=== PATIENT | male | born 1950 | race Caucasian/White ===

== ENCOUNTER → 2016-09-16 | Outpatient (CLI) | payer OTHER ==
--- NOTE | 2016-09-16 13:14 | XR ---
EXAMINATION TYPE: XR elbow complete RT DATE OF EXAM: 09/16/2016 1:09 PM COMPARISON: NONE HISTORY: elbow contusion Three views of the elbow demonstrate no pathologic joint effusion. The osseous structures are intact . There is no acute fracture or dislocation. IMPRESSION: 1. No acute fracture or dislocation. If symptoms persist follow-up study in 7 to 10 days could be ob tained.
== END | disposition home or self-care (01) ==
LOC: RADXRMAIN 12:51
PROVIDERS: ATTEND Emergency Medicine
DX: S50.01XA Contusion of right elbow, initial encounter (principal); Z98.890 Other specified postprocedural states

== ENCOUNTER 2022-07-21 12:34 | Emergency (ER) | payer OTHER, MEDICARE ==
[2022-07-21 13:14] VITALS: BP 153/89; PULSE 82; RESP 20; TEMP 98
--- NOTE | 2022-07-21 14:21 | XR ---
EXAMINATION TYPE: XR Hip RT and AP Pelvis DATE OF EXAM: 07/21/2022 COMPARISON: None HISTORY: Fall, pain TECHNIQUE: 2 view right hip supplemented with AP pelvis FINDINGS: Femoral heads articulate with the acetabulum. Mild diffuse joint space narrowing may be pre sent bilaterally. Sacroiliac joints and symphysis pubis are normal. Normal bowel gas is present withi n the [id number] No acute fracture or dislocation is evident. Cam deformity may be present at the right hip. Follow up exams can be performed 7-10 days from acute trauma for continued pain. IMPRESSION: 1. No acute osseous abnormality right hip
[2022-07-21] MEDS ORDERED: ACET/COD 300 MG/30 MG STARTER PACK 6 TAB BTL PO STA (15:17)
--- NOTE | 2022-07-21 15:17 | ED ---
General Adult HPI - General Chief complaint: Extremity Injury, Lower Stated complaint: Fall, [facility] Time Seen by Provider: 07/21/22 14:44 Source: patient Mode of arrival: ambulatory Limitations: no limitations - History of Present Illness Initial comments: Dictation was produced using [employer] dictation software. please excuse any grammatical, word or spelling errors. Chief Complaint: 72-year-old male in no significant past medical history presents with right-sided hip pain after fall History of Present Illness: Patient 72-year-old male he felt the back of a truck approximately 3 feet. He landed on his right hip. Patient states that after the fall he was expressing significant pain is secondary to industrial health and then was brought to the emergency department. Patient states that it's extremely painful when he walks however he is able to bear weight and ambulate. Patient's pain is worse with standing and internal rotation. The ROS documented in this emergency department record has been reviewed and confirmed by me. Those systems with pertinent positive or negative responses have been documented in the HPI. All other systems are other negative and/or noncontributory. PHYSICAL EXAM: General Impression: Alert and oriented x3, not in acute distress HEENT: Normocephalic atraumatic, extra-ocular movements intact, pupils equal and reactive to light bilaterally, mucous membranes moist. Cardiovascular: Heart regular rate and rhythm Chest: Able to complete full sentences, no retractions, no tachypnea Abdomen: abdomen soft, non-tender, non-distended, no organomegaly Musculoskeletal: Pulses present and equal in all extremities, no peripheral edema Bilateral lower extremities, right hip does not show any ecchymoses. No gross deformities. Pain reproduced with internal rotation at the right hip and bilateral knee adduction Motor: no focal deficits noted Neurological: CN II-XII grossly intact, no focal motor or sensory deficits noted Skin: Intact with no visualized rashes Psych: Normal affect and mood ED course: 72-year-old male presents emergency department for right hip injury. All signs upon arrival are within acceptable limits. X-ray does not show any osseous abnormalities. Patient be discharged. Advised follow-up with primary care doctor. - Related Data Allergies Allergy/AdvReac Type Severity Reaction Status Date / Time methimazole [From Tapazole] Allergy Vomiting Verified 07/21/22 13:14 Review of Systems ROS Statement: Those systems with pertinent positive or pertinent negative responses have been documented in the HPI. ROS Other: All systems not noted in ROS Statement are negative. Past Medical History Past Medical History: No Reported History History of Any Multi-Drug Resistant Organisms: None Reported Additional Past Surgical History / Comment(s): Colon, Ca Past Psychological History: No Psychological Hx Reported Smoking Status: Never smoker Past Alcohol Use History: None Reported Past Drug Use History: None Reported General Exam Limitations: no limitations Course Vital Signs 07/21/22 13:11 Temperature 98 F Pulse Rate 82 Respiratory 20 Rate Blood Pressure 153/89 O2 Sat by Pulse 96 Oximetry Disposition Clinical Impression: Hip strain Disposition: HOME SELF-CARE Condition: Good Instructions (If sedation given, give patient instructions): Hip Pain (ED) Is patient prescribed a controlled substance at d/c from ED?: No Referrals: Andres Vaughn MD [Primary Care Provider] - 1-2 days Time of Disposition: 15:16
== END 2022-07-21 16:14 | disposition home or self-care (01) ==
LOC: EC 12:34
DX: S76.011A Strain of muscle, fascia and tendon of right hip, initial encounter (principal); Z88.8 Allergy status to other drugs, medicaments and biological substances; W18.30XA Fall on same level, unspecified, initial encounter
CPT/HCPCS: 73502; 99283

== ENCOUNTER 2022-07-25 17:20 | Emergency (ER) | payer OTHER, MEDICARE ==
[2022-07-25 17:36] VITALS: RESP 20
[2022-07-25] MEDS ORDERED: HYDROcodone/APAP 5-325MG 1 EACH TAB PO STA (19:52)
[2022-07-25 20:32] LABS: Basophils % (A) 1 %; Eosinophils # (A) 0.2 k/uL (0-0.7); Eosinophils % (A) 3 %; HCT 43.3 % (39.0-53.0); HGB 14.6 gm/dL (13.0-17.5); Lymphocytes # (A) 2.3 k/uL (1.0-4.8); Lymphocytes % (A) 34 %; MCH 29.7 pg (25.0-35.0); MCHC 33.7 g/dL (31.0-37.0); Mean Platelet Volume 8.9; Monocytes # (A) 0.7 k/uL (0-1.0); Monocytes % (A) 10 %; Neutrophils # (A) 3.4 k/uL (1.3-7.7); Neutrophils % (A) 50 %; Platelet Count 199 k/uL (150-450); RBC 4.91 m/uL (4.30-5.90); RDW 12.8 % (11.5-15.5); WBC 6.9 k/uL (3.8-10.6)
[2022-07-25 20:42] LABS: Appearance,Urine Clear (Clear); Bilirubin,Urine Negative (Negative); Blood,Urine Negative (Negative); Color,Urine Yellow; Glucose,Urine (UA) Negative (Negative); Ketones,Urine Negative (Negative); Leukocyte Esterase,Urine Negative (Negative); Nitrite,Urine Negative (Negative); Protein,Urine Negative (Negative); Specific Gravity,Urine 1.017 (1.001-1.035); Urobilinogen,Urine <2.0 mg/dL (<2.0)
[2022-07-25 20:46] LABS: INR 0.9 (<1.2); Partial Thromboplastin Time 28.3 sec (22.0-30.0); Prothrombin Time 9.9 sec (9.0-12.0)
[2022-07-25 20:55] LABS: ALT 38 U/L (4-49); AST 35 U/L (17-59); African American GFR (CKD) >90 (>60 ml/min/1.73 sqM); Albumin 4.5 g/dL (3.5-5.0); Alkaline Phosphatase 67 U/L (38-126); Anion Gap 6 mmol/L; Blood Urea Nitrogen 18 mg/dL (9-20); Calcium 9.1 mg/dL (8.4-10.2); Carbon Dioxide 29 mmol/L (22-30); Chloride 103 mmol/L (98-107); Glucose 92 mg/dL (74-99); Non-African American GFR(CKD) >90 (>60 ml/min/1.73 sqM); Potassium 4.7 mmol/L (3.5-5.1); Sodium 138 mmol/L (137-145); Total Bilirubin 0.7 mg/dL (0.2-1.3); Total Protein 7.2 g/dL (6.3-8.2)
--- NOTE | 2022-07-25 21:45 | CT ---
EXAMINATION TYPE: CT abdomen pelvis w con CT DLP: 1123 mGycm, Automated exposure control for dose reduction was used. DATE OF EXAM: 07/25/2022 9:24 PM COMPARISON: CT head 07/25/2022 CLINICAL INDICATION:Male, 72 years old with history of fall, large left hemipelvis hematoma on hip ct ; Fall, large left hemipelvis hematoma on Prior Hip CT from earlier today. Pt fell three feet out of truck on and is having Right hip and groin pain since. TECHNIQUE: Axial CT of the abdomen and pelvis. Sagittal and coronal reformats were created on a [employer] workstation. Contrast used:100cc mL of Isovue 300 with IV Contrast, Oral contrast used: without Oral Contrast FINDINGS: LOWER CHEST: Unremarkable ABDOMEN LIVER: Diffusely hypoattenuating parenchyma. GALLBLADDER AND BILE DUCTS: Unremarkable. PANCREAS: Unremarkable. SPLEEN: Unremarkable. ADRENAL GLANDS: Unremarkable. KIDNEYS AND URETERS: No evidence of hydronephrosis or renal calculus. PELVIS BLADDER: Unremarkable REPRODUCTIVE: Unremarkable. ABDOMEN & PELVIS STOMACH AND BOWEL: No evidence of bowel obstruction. Colonic diverticulosis. PERITONEUM: No evidence of pneumoperitoneum , redemonstration of left pelvis fluid collection most co nsistent with hematoma measuring 10.8 x 4.7 x 4.7 cm and 60 Hounsfield units. VASCULATURE: No evidence of aortic aneurysm. Atherosclerosis of the arterial vasculature. MUSCULOSKELETAL: No acute osseous abnormalities LYMPH NODES: No gross evidence for lymphadenopathy. SOFT TISSUE/ABDOMINAL WALL: Unremarkable IMPRESSION: 1. Left pelvis sidewall fluid collection favored to represent hematoma which was partially seen on p rior hip CT. No evidence of acute fracture. 2. Hepatic steatosis.
[2022-07-25] MEDS ORDERED: Acetaminophen-Codeine 300-30mg TAB PO STA (22:29)
--- NOTE | 2022-07-25 22:31 | ED ---
General Adult HPI - General Chief complaint: Recheck/Abnormal Lab/Rx Stated complaint: Dr sent for hip injury Time Seen by Provider: 07/25/22 19:25 Source: patient Mode of arrival: ambulatory Limitations: no limitations - History of Present Illness Initial comments: Patient is a 72-year-old male who presents from [facility] for evaluation of hip injury. Patient fell approximately 3 feet off his truck on 07/21. Patient fell onto his right hip. He denies head trauma and blood thinner use. Patient was evaluated in emergency department. I reviewed this visit including imaging of the hip which showed no acute process. Patient had a follow-up with S today. Due to consistent pain which is worse upon ambulation patient had an outpatient CT of the right hip. I reviewed this as well which shows no acute fracture of the right hip and right pelvis. This showed an abnormal lobulated density within the left hemipelvis measuring up to 7.8 cm, suspected posttraumatic intrapelvic hematoma. There is some mass effect along the left lateral wall of the bladder. Patient denies issue with urination. He has been taking Tylenol during the day and Tylenol 3 at night which does help his pain. He reports most of his pain in the front of his right hip near his groin. He was sent in for further evaluation of hematoma with [facility] request of abdomen and pelvis CT - Related Data Home Medications Medication Instructions Recorded Confirmed Aspirin EC [Ecotrin Low Dose] 81 mg PO DAILY 07/25/22 07/25/22 Omeprazole 20 mg PO DAILY 07/25/22 07/25/22 Allergies Allergy/AdvReac Type Severity Reaction Status Date / Time methimazole [From Tapazole] Allergy Vomiting Verified 07/25/22 21:57 Milk Containing Products Allergy Unknown Verified 07/25/22 21:57 [Dairy] peanut Allergy Unknown Verified 07/25/22 21:57 Review of Systems ROS Statement: Those systems with pertinent positive or pertinent negative responses have been documented in the HPI. ROS Other: All systems not noted in ROS Statement are negative. Past Medical History Past Medical History: No Reported History History of Any Multi-Drug Resistant Organisms: None Reported Additional Past Surgical History / Comment(s): Colon, Ca Past Psychological History: No Psychological Hx Reported Smoking Status: Never smoker Past Alcohol Use History: None Reported Past Drug Use History: None Reported General Exam Limitations: no limitations General appearance: alert, in no apparent distress Respiratory exam: Present: normal lung sounds bilaterally. Absent: respiratory distress, wheezes, rales, rhonchi, stridor Cardiovascular Exam: Present: regular rate, normal rhythm, normal heart sounds. Absent: systolic murmur, diastolic murmur, rubs, gallop, clicks GI/Abdominal exam: Present: soft, normal bowel sounds. Absent: distended, tenderness, guarding, rebound, rigid Right Hip exam: Present: normal inspection, full ROM, pelvic stability. Absent: tenderness, swelling, abrasion, laceration, ecchymosis, deformity, crepitus, dislocation, erythema, external rotation, internal rotation, shortening Upper Leg exam: Present: normal inspection, full ROM. Absent: tenderness, swelling Course Vital Signs 07/25/22 07/25/22 07/25/22 17:33 21:00 22:53 Temperature 98 F 97.8 F 98.2 F Pulse Rate 80 78 74 Respiratory 20 20 20 Rate Blood Pressure 154/95 149/90 147/88 O2 Sat by Pulse 97 98 97 Oximetry Medical Decision Making - Medical Decision Making This is a 72-year-old male presenting for evaluation of right hip injury. No overlying swelling, erythema, ecchymosis. No point tenderness. Full range of motion without pain. Pain controlled. Abdomen and pelvis CT with contrast was obtained and interpreted by me which shows left pelvis side wall fluid collection favored to represent hematoma. Case discussed with Dr. Wilkes who does not recommend surgical intervention at this time. Patient will be discharged with Tylenol 3 starter pack for pain control. He will follow up with [facility]. Dr. Contreras is my attending. - Lab Data Result diagrams: 07/25/22 20:10 07/25/22 20:10 Lab Results 07/25/22 07/25/22 07/25/22 Range/Units 20:05 20:10 20:10 WBC 6.9 (3.8-10.6) k/uL RBC 4.91 (4.30-5.90) m/uL Hgb 14.6 (13.0-17.5) gm/dL Hct 43.3 (39.0-53.0) % MCV 88.0 (80.0-100.0) fL MCH 29.7 (25.0-35.0) pg MCHC 33.7 (31.0-37.0) g/dL RDW 12.8 (11.5-15.5) % Plt Count 199 (150-450) k/uL MPV 8.9 Neutrophils % 50 % Lymphocytes % 34 % Monocytes % 10 % Eosinophils % 3 % Basophils % 1 % Neutrophils # 3.4 (1.3-7.7) k/uL Lymphocytes # 2.3 (1.0-4.8) k/uL Monocytes # 0.7 (0-1.0) k/uL Eosinophils # 0.2 (0-0.7) k/uL Basophils # 0.0 (0-0.2) k/uL PT 9.9 (9.0-12.0) sec INR 0.9 (<1.2) APTT 28.3 (22.0-30.0) sec Sodium (137-145) mmol/L Potassium (3.5-5.1) mmol/L Chloride (98-107) mmol/L Carbon Dioxide (22-30) mmol/L Anion Gap mmol/L BUN (9-20) mg/dL Creatinine (0.66-1.25) mg/dL Est GFR (CKD-EPI)AfAm (>60 ml/min/1.73 sqM) Est GFR (CKD-EPI)NonAf (>60 ml/min/1.73 sqM) Glucose (74-99) mg/dL Calcium (8.4-10.2) mg/dL Total Bilirubin (0.2-1.3) mg/dL AST (17-59) U/L ALT (4-49) U/L Alkaline Phosphatase (38-126) U/L Total Protein (6.3-8.2) g/dL Albumin (3.5-5.0) g/dL Urine Color Urine Appearance (Clear) Urine pH (5.0-8.0) Ur Specific Nitro (1.001-1.035) Urine Protein (Negative) Urine Glucose (UA) (Negative) Urine Ketones (Negative) Urine Blood (Negative) Urine Nitrite (Negative) Urine Bilirubin (Negative) Urine Urobilinogen (<2.0) mg/dL Ur Leukocyte Esterase (Negative) Blood Type Blood Type Confirm O Negative Blood Type Recheck Bld Type Recheck Status Antibody Screen Spec Expiration Date 07/25/22 07/25/22 07/25/22 Range/Units 20:10 20:10 22:00 WBC (3.8-10.6) k/uL RBC (4.30-5.90) m/uL Hgb (13.0-17.5) gm/dL Hct (39.0-53.0) % MCV (80.0-100.0) fL MCH (25.0-35.0) pg MCHC (31.0-37.0) g/dL RDW (11.5-15.5) % Plt Count (150-450) k/uL MPV Neutrophils % % Lymphocytes % % Monocytes % % Eosinophils % % Basophils % % Neutrophils # (1.3-7.7) k/uL Lymphocytes # (1.0-4.8) k/uL Monocytes # (0-1.0) k/uL Eosinophils # (0-0.7) k/uL Basophils # (0-0.2) k/uL PT (9.0-12.0) sec INR (<1.2) APTT (22.0-30.0) sec Sodium 138 (137-145) mmol/L Potassium 4.7 (3.5-5.1) mmol/L Chloride 103 (98-107) mmol/L Carbon Dioxide 29 (22-30) mmol/L Anion Gap 6 mmol/L BUN 18 (9-20) mg/dL Creatinine 0.74 (0.66-1.25) mg/dL Est GFR (CKD-EPI)AfAm >90 (>60 ml/min/1.73 sqM) Est GFR (CKD-EPI)NonAf >90 (>60 ml/min/1.73 sqM) Glucose 92 (74-99) mg/dL Calcium 9.1 (8.4-10.2) mg/dL Total Bilirubin 0.7 (0.2-1.3) mg/dL AST 35 (17-59) U/L ALT 38 (4-49) U/L Alkaline Phosphatase 67 (38-126) U/L Total Protein 7.2 (6.3-8.2) g/dL Albumin 4.5 (3.5-5.0) g/dL Urine Color Yellow Urine Appearance Clear (Clear) Urine pH 5.0 (5.0-8.0) Ur Specific Nitro 1.017 (1.001-1.035) Urine Protein Negative (Negative) Urine Glucose (UA) Negative (Negative) Urine Ketones Negative (Negative) Urine Blood Negative (Negative) Urine Nitrite Negative (Negative) Urine Bilirubin Negative (Negative) Urine Urobilinogen <2.0 (<2.0) mg/dL Ur Leukocyte Esterase Negative (Negative) Blood Type O Negative Blood Type Confirm Blood Type Recheck No Previous Record Bld Type Recheck Status CABO Indicated Antibody Screen NEGATIVE Spec Expiration Date 07/28/20222309 Disposition Clinical Impression: Hematoma, Fall, Right hip pain Disposition: HOME SELF-CARE Condition: Good Instructions (If sedation given, give patient instructions): Hip Pain (ED), Hematoma (ED) Additional Instructions: Take medication as directed. I recommended taking anti-inflammatories during the day such as Motrin. Follow-up with [facility] on Monday as planned. Return to the emergency department if you experience new, concerning, or worsening symptoms. Is patient prescribed a controlled substance at d/c from ED?: No Referrals: Andres Vaughn MD [Primary Care Provider] - 1-2 days Time of Disposition: 22:30
[2022-07-25] MEDS ORDERED: ACET/COD 300 MG/30 MG STARTER PACK 6 TAB BTL PO STA (22:32)
[2022-07-25 23:21] VITALS: BP 147/88; PULSE 74; TEMP 98.2
== END 2022-07-25 22:53 | disposition home or self-care (01) ==
LOC: EC 17:20
DX: S70.01XA Contusion of right hip, initial encounter (principal); M25.552 Pain in left hip; Z91.011 Allergy to milk products; Z88.8 Allergy status to other drugs, medicaments and biological substances; Z91.010 Allergy to peanuts; V58.2XXA Person on outside of pick-up truck or van injured in noncollision transport accident in nontraffic accident, initial encounter
CPT/HCPCS: 36415; 86900; 86901; 80053; 85025; 85610; 85730; 86850; 81003; 74177; 99284; Q9967

== ENCOUNTER → 2022-07-25 | Outpatient (CLI) | payer OTHER, MEDICARE ==
--- NOTE | 2022-07-25 16:14 | CT ---
EXAMINATION TYPE: CT hip RT wo con DATE OF EXAM: 07/25/2022 COMPARISON: Radiograph 07/21/2022 HISTORY: 72-year-old male [id number] CONTUSION OF RIGHT HIP. Patient fell three feet out of a truck on , Right hip and groin pain since. TECHNIQUE: Contiguous axial scanning of the right hip without IV contrast. Coronal and sagittal recon structions performed. 3-D reconstructions generated on a dedicated workstation. CT DLP: 502 mGycm Automated exposure control for dose reduction was used. FINDINGS: Moderate degenerative disc disease L5-S1. Mild degenerative change at the pubic symphysis. No acute fracture of the right side of the pelvis or sacrum is identified. Mild degenerative change at the right hip. No significant hip joint effusion. No acute fracture is id entified at the right hip. Partially visualized lobulated slightly high density masses in the left hemipelvis located behind the left pubic bone measuring up to 5.8 cm with a second contiguous area along the left lateral aspect o f the bladder measuring at least 7.8 cm with some mass effect on the left lateral wall of the bladder . Refer to axial images 49 through 40 and coronal images 48 through 59. IMPRESSION: 1. NO ACUTE FRACTURE SEEN ALONG THE RIGHT HIP OR RIGHT SIDE OF THE PELVIS OR SACRUM. 2. ABNORMAL LOBULATED DENSITIES WITHIN THE LEFT HEMIPELVIS MEASURING UP TO 7.8 CM. THESE HAVE SOME MA SS EFFECT ALONG THE LEFT LATERAL WALL OF THE BLADDER. SUSPECT LARGE POSTTRAUMATIC INTRAPELVIC HEMATOM . COMPLETE EVALUATION OF THE LOWER ABDOMEN AND PELVIS MAY BE WARRANTED.
== END | disposition home or self-care (01) ==
LOC: RADCTMAIN 15:21
PROVIDERS: ATTEND Emergency Medicine
DX: S70.01XA Contusion of right hip, initial encounter (principal); N32.89 Other specified disorders of bladder; R93.2 Abnormal findings on diagnostic imaging of liver and biliary tract